=== PATIENT | female | born 1950 | race Caucasian/White ===

== ENCOUNTER → 2020-11-21 12:02 | Outpatient (CLI) | payer MEDICARE, SELFPAY ==
--- NOTE | ~2020-11-21 | MM_ITS ---
EXAMINATION: MM screening [facility] BI w naima HISTORY: Screening mammogram TECHNIQUE: Craniocaudal and mediolateral oblique 3-D tomosynthesis images were obtained and synthetic 2-D images were generated. CAD analysis was submitted and interpreted. COMPARISON: 04/09/2018, 04/02/2017, 04/16/2015 BREAST PARENCHYMAL COMPOSITION: The breasts are heterogeneously dense, which may obscure small masses . FINDINGS: Scattered benign-appearing calcifications are present. There is no evidence of suspicious m ass, calcification, or architectural distortion to suggest malignancy in either breast. There has bee n no suspicious interval change. IMPRESSION: 1. No mammographic evidence of malignancy. 2. Recommend routine screening mammography in one year. BI-RADS Category 2: Benign finding(s). Reviewed, dictated and finalized at location A. ARE PROJECT MANAGER
== END ==
PROVIDERS: PCP Internal Medicine; Visit Provider Obstetrics & Gynecology
DX: Z12.31 Encounter for screening mammogram for malignant neoplasm of breast (principal)
CPT/HCPCS: 77063; 77067

== ENCOUNTER → 2022-04-18 07:11 | Outpatient (CLI) | payer MEDICARE, SELFPAY ==
--- NOTE | ~2022-04-18 | MM_ITS ---
EXAMINATION: MM screening [facility] w naima HISTORY: Screening TECHNIQUE: Craniocaudal and mediolateral oblique 3-D tomosynthesis images were obtained and synthetic 2-D images were generated. CAD analysis was submitted and interpreted. COMPARISON: Comparison to multiple prior studies sequentially, with oldest reviewed study dated 04/16. BREAST PARENCHYMAL COMPOSITION: The breasts are heterogeneously dense, which may obscure small masses . FINDINGS: There is no evidence of suspicious mass, calcification, or architectural distortion to sugg est malignancy in either breast. There has been no suspicious interval change. IMPRESSION: 1. No mammographic evidence of malignancy. 2. Recommend routine screening mammography in one year. BI-RADS Category 1: Negative Reviewed, dictated and finalized at location A.
== END ==
PROVIDERS: PCP Internal Medicine; Visit Provider Obstetrics & Gynecology
DX: Z12.31 Encounter for screening mammogram for malignant neoplasm of breast (principal)
CPT/HCPCS: 77063; 77067

== ENCOUNTER 2022-11-05 01:53 | Day surgery (SDC) | payer MEDICARE, SELFPAY ==
[2022-10-24 14:00] VITALS: BMI 23.1
--- NOTE | 2022-11-04 12:47 | PM.HPGS ---
History of Present Illness History of Present Illness Consent: Risks, benefits, and alternatives have been discussed and questions answered. Patient agrees to proceed with procedure. Chief complaint: hx colon polyps Narrative: Akiko Henderson is a 72 year old female here for colon cancer screening. She has had polyps removed in the past. About 5 years ago she required a colon resection for diverticulitis. Prior to the surgery she had a colonoscopy, her 1st. Apparently it was unremarkable, but in the surgical specimen a polyp was found. This is her 1st colonoscopy since the surgery. Review of Systems Review of Systems: All systems reviewed & are unremarkable except as noted in HPI and below PMFSH Past Medical History Medical History Benign hypertension with chronic kidney disease Bilateral carpal tunnel syndrome Body mass index [BMI] 28.0-28.9, adult (12/17/15) Cervical spine pain Cough Decreased renal function Encounter for breast cancer screening other than mammogram Encounter for screening for lung cancer Essential (primary) hypertension Fuchs' syndrome II Gout Gout, unspecified Hernia of abdominal wall History of diverticulitis of colon Hyperlipidemia Hyperuricemia Low blood potassium Medicare annual wellness visit, subsequent Other hyperlipidemia Other specified disorders of bone density and structure, unspecified ankle and foot Preoperative clearance Right hip pain Stage 3 chronic kidney disease Tobacco use disorder Trigger finger, left middle finger Unspecified kidney failure Surgical History Surgical History History of partial colectomy 2012 with colostomy. Colostomy has been since reversed Hx of colonoscopy Family History Family History Father Family history of liver disease Sibling Cerebrovascular accident Social History Social History Smoking packs per day: 0.5 Smoking cigarettes per day: 10.0 Years smoked: 50 Smoking pack-years: 25.00 Smoking status: Current every day smoker Tobacco type: cigarettes Second hand tobacco smoke exposure: Yes Alcohol intake: current Drinks per week: 5 Substance use: never Substance use type: does not use Living arrangements: with family Gender identity (if verbalized by the patient): Female Spiritual care concerns: No Meds Home Medications and Allergies Home Medications Medication Instructions Recorded Confirmed Type triamterene 75 1 tablet PO DAILY #60 tabs 10/03/19 10/24/22 Rx mg-hydrochlorothiazide 50 mg tablet allopurinol 100 mg tablet 100 mg PO BID #180 tabs 09/04/22 10/24/22 Rx aspirin 81 mg chewable tablet 81 mg PO DAILY 09/30/22 10/24/22 History cholecalciferol (vitamin D3) 125 125 mcg PO DAILY 09/30/22 10/24/22 History mcg (5,000 unit) capsule cyanocobalamin (vitamin B-12) 2,000 mcg PO DAILY 09/30/22 10/24/22 History 2,000 mcg tablet prenat.vits,rolando,pyi-cruv-chmes 1 tablet PO DAILY 09/30/22 10/24/22 History verapamil 180 mg tablet,extended 180 mg PO Q12H #180 tabs 10/07/22 10/24/22 Rx release atorvastatin 40 mg tablet 40 mg PO DAILY 10/24/22 10/24/22 History naproxen 500 mg tablet 500 mg PO BID PRN Pain 10/24/22 10/24/22 History omega-3 fatty acids-vitamin E 1 cap PO DAILY 10/24/22 10/24/22 History 1,000 mg capsule Allergies Allergy/AdvReac Type Severity Reaction Status Date / Time metronidazole Allergy Unknown Unknown Verified 11/05/22 09:12 Exam Resp: Auscultation: clear to auscultation bilaterally Cardio: Rate: regular rate Rhythm: regular rhythm GI: GI Palp: Yes Soft to palpation and No Tenderness to palpation present (GI) Assessment and Plan Assessment and plan (1) Screening for colon cancer: Code(s): Z12.11 - Encounter for screening for malignan
[2022-11-05 09:12] VITALS: BP 157/70; PULSE 89; RESP 18; TEMP 36.2; O2SAT 99
[2022-11-05] MEDS: LACTATED RINGERS 1,000 ML 150 ML IV CONT (09:23)
--- NOTE | 2022-11-05 09:35 | WPDANESEPPF ---
Anes - Initial Pre Proc Eval Procedure: Operation Date: 11/05/22 10:30 Proposed Procedures p Screening Colonoscopy - Eliezer Rahman MD Date/Time: 11/05/22 09:35 Surgeon: Eliezer Rahman MD Pre Op Diagnosis: hx colon polyps Patient Data Age: 72 Gender: F Height: 1.63 m Weight: 62.7 kg Last Vital Signs Temp 97.2 F L 11/05/22 09:12 Pulse 89 11/05/22 09:12 Resp 18 11/05/22 09:12 BP 157/70 H 11/05/22 09:12 Pulse Ox 99 11/05/22 09:12 O2 Del Method Room Air 11/05/22 09:12 Allergies Allergy/AdvReac Type Severity Reaction Status Date / Time metronidazole Allergy Unknown Unknown Verified 11/05/22 09:12 Home Medications Medication Instructions Recorded Confirmed Type triamterene 75 1 tablet PO DAILY #60 tabs 10/03/19 10/24/22 Rx mg-hydrochlorothiazide 50 mg tablet allopurinol 100 mg tablet 100 mg PO BID #180 tabs 09/04/22 10/24/22 Rx aspirin 81 mg chewable tablet 81 mg PO DAILY 09/30/22 10/24/22 History cholecalciferol (vitamin D3) 125 125 mcg PO DAILY 09/30/22 10/24/22 History mcg (5,000 unit) capsule cyanocobalamin (vitamin B-12) 2,000 mcg PO DAILY 09/30/22 10/24/22 History 2,000 mcg tablet prenat.vits,rolando,pax-uksj-utyqz 1 tablet PO DAILY 09/30/22 10/24/22 History verapamil 180 mg tablet,extended 180 mg PO Q12H #180 tabs 10/07/22 10/24/22 Rx release atorvastatin 40 mg tablet 40 mg PO DAILY 10/24/22 10/24/22 History naproxen 500 mg tablet 500 mg PO BID PRN Pain 10/24/22 10/24/22 History omega-3 fatty acids-vitamin E 1 cap PO DAILY 10/24/22 10/24/22 History 1,000 mg capsule Patient hx anesthesia problems: none Family hx anesthesia problems: none Results Review: All pre-operative results and documents have been reviewed as part of the pre-operative evaluation. [facility] Past Medical History Medical History Benign hypertension with chronic kidney disease Bilateral carpal tunnel syndrome Body mass index [BMI] 28.0-28.9, adult (12/17/15) Cervical spine pain Cough Decreased renal function Encounter for breast cancer screening other than mammogram Encounter for screening for lung cancer Essential (primary) hypertension Fuchs' syndrome II Gout Gout, unspecified Hernia of abdominal wall History of diverticulitis of colon Hyperlipidemia Hyperuricemia Low blood potassium Medicare annual wellness visit, subsequent Other hyperlipidemia Other specified disorders of bone density and structure, unspecified ankle and foot Preoperative clearance Right hip pain Stage 3 chronic kidney disease Tobacco use disorder Trigger finger, left middle finger Unspecified kidney failure Surgical History Surgical History History of partial colectomy 2012 with colostomy. Colostomy has been since reversed Hx of colonoscopy Family History Family History Father Family history of liver disease Sibling Cerebrovascular accident Social History Social History Smoking packs per day: 0.5 Smoking cigarettes per day: 10.0 Years smoked: 50 Smoking pack-years: 25.00 Smoking status: Current every day smoker Tobacco type: cigarettes Second hand tobacco smoke exposure: Yes Alcohol intake: current Drinks per week: 5 Substance use: never Substance use type: does not use Living arrangements: with family Gender identity (if verbalized by the patient): Female Spiritual care concerns: No Anes - Eval Final PreProcedure Day of Procedure 11/05/22 09:35 Patient weight: normal Heart: regular rate and rhythm Lungs: clear to auscultation Airway: Mallampati scale class II Neurological: alert and oriented Last oral intake: >/= 8 hours ASA classification: III Emergent: no Anesthetic plan: proceed Anesthesia type and monitoring: general GIVS and standard m
[2022-11-05 09:57] VITALS: BP 130/59; PULSE 78; RESP 22; O2SAT 100
[2022-11-05 10:07] VITALS: BP 133/74; PULSE 77; RESP 20; O2SAT 100
[2022-11-05 10:17] VITALS: BP 139/73; PULSE 72; RESP 19; O2SAT 97
== END 2022-11-05 10:26 | disposition home or self-care (01) ==
PROVIDERS: PCP Physician Assistant Medical; Visit Provider Internal Medicine Gastroenterology
PROC: 0DJD8ZZ Inspection of Lower Intestinal Tract, Via Natural or Artificial Opening Endoscopic (ICD-10-PCS; CPT 45378; principal; 2022-11-05 10:30)
DX: Z12.11 Encounter for screening for malignant neoplasm of colon (principal); Z98.0 Intestinal bypass and anastomosis status; Z86.010 Personal history of colon polyps; I12.9 Hypertensive chronic kidney disease with stage 1 through stage 4 chronic kidney disease, or unspecified chronic kidney disease; N18.30 Chronic kidney disease, stage 3 unspecified; H18.519 Endothelial corneal dystrophy, unspecified eye; M10.9 Gout, unspecified; Z87.19 Personal history of other diseases of the digestive system; E78.5 Hyperlipidemia, unspecified; Z90.49 Acquired absence of other specified parts of digestive tract; F10.90 Alcohol use, unspecified, uncomplicated; F17.210 Nicotine dependence, cigarettes, uncomplicated; Z79.82 Long term (current) use of aspirin; Z79.1 Long term (current) use of non-steroidal anti-inflammatories (NSAID); Z79.899 Other long term (current) drug therapy
CPT/HCPCS: G0105; J2704; J7120

== ENCOUNTER 2023-02-09 01:33 | Day surgery (SDC) | payer MEDICARE, SELFPAY ==
[2023-01-27 09:33] VITALS: BMI 23.1
--- NOTE | 2023-01-27 09:37 | PC.NURSE ---
Report to the Outpatient Waiting Room, entrance under the green pavilion located off [facility], at time __2PM on date __02/09/23 . Planned Procedure Time: ___3PM . Time changes happen often and if your time is changed the preop area will call you the afternoon before. - You and your visitor will be asked to self-screen and do not enter if you have any COVID symptoms. - A mask is optional within the hospital at this time. -MAY EAT/DRINK NORMALLY Take the following medications with a SIP of water the morning of surgery: REGULAR HOME MEDS DO NOT STOP ANY OF YOUR OTHER PRESCRIPTION MEDICATIONS PRIOR TO SURGERY ?EXCEPT THE FOLLOWING Medications to discontinue per DR. KIRBY - _ASPIRIN, NAPROXEN 7 DAYS PRIOR TO SURGERY, Date to take last dose 02/01/23_ Please no make-up, nail uzbek, hairspray, perfume, deodorant, or body powder the day of surgery. No jewelry (including any body piercings) or valuables the day of surgery, leave them at home. Please take a shower or bath the night before, or the morning of, surgery with an antibacterial soap. Wear comfortable, loose fitting clothing. Children are encouraged to wear pajamas. - Jewelry must be removed prior to entering the operating room. Rings and piercings that are not removed may be cut off. - The hospital will not accept responsibility for valuables. - Please leave all valuables, including medications, at home the day of surgery. -MAY DRIVE YOURSELF TO/FROM HOSPITAL - VULCANIZED FIBER UNIT OPERATOR IS ENCOURAGED Follow any additional instructions given to you from your surgeon. If you or anyone in your household have experienced Covid symptoms in the past week, please notify your surgeon or the nurse liaison at the phone number below for possible testing. Telephone instructions given to ___PATIENT and asked if any additional questions and then verbalized understanding. Patient advised to call surgeon office or pre surgery nurse liaison [phone] if any additional questions.
--- NOTE | 2023-02-09 11:25 | WPDHPUPDATE1 ---
History and Physical Update Update Date/Time: 02/09/23 11:25 History and Physical has been reviewed, including an updated exam of the patient. There are NO changes in the patient's condition. Risks, benefits, and alternatives have been discussed and questions answered. Patient agrees to proceed with procedure.
[2023-02-09 13:58] VITALS: BP 139/81; PULSE 94; RESP 16; TEMP 36.3; O2SAT 97
[2023-02-09] MEDS: ACETAMINOPHEN 500 MG TABLET 1000 MG PO (14:16)
[2023-02-09 15:05] VITALS: BP 160/84; PULSE 81; RESP 15; O2SAT 96
[2023-02-09 15:10] VITALS: BP 153/72; PULSE 85; RESP 15; O2SAT 97
[2023-02-09 15:20] VITALS: BP 153/74; PULSE 89; RESP 14; O2SAT 97
[2023-02-09] MEDS: BUPIVACAINE/EPINEPHRINE 0.5% 50 ML VIAL 10 ML INFILTRATE (15:29)
[2023-02-09 15:30] VITALS: BP 148/75; PULSE 90; RESP 14; O2SAT 97
[2023-02-09 15:43] VITALS: BP 148/68; PULSE 91; RESP 18; O2SAT 96
--- NOTE | 2023-02-09 15:47 | P.OP_ITS ---
Procedure Note - Detailed Date of Procedure 02/09/23 Pre-op Diagnosis left carpal tunnel syndrome Post-op Diagnosis Same Procedure Performed Left Carpal tunnel release Surgeon Carrillo Connor MD Director Of Marketing Analytics Ladi Quiñones PA-C Anesthesia Local Description of Procedure The proposed incision was marked using typical anatomic landmarks. 10 ML .25% Marcaine injected into the wrist and proposed incision site. The hand was prepped and draped in the usual sterile fashion. The limb was exsanguinated and the tourniquet inflated to 250 millimeters of mercury. A longitudinal incision was taken sharply. Dissection was brought down to the transverse carpal ligament. Under direct vision the ligament was incised sharply. The proximal release was carried out with dissection scissors. The contents of the carpal canal were protected with a Martin elevator. The transverse carpal ligament was confirmed to be widely patent. The wound was closed with interrupted 3-0 Prolene suture. A sterile bulky dressing was placed. Patient was brought to the recovery room in stable condition. Estimated Blood Loss 1 Pathology None sent Complications No immediate complications Condition Stable Disposition PACU [facility] Billing Surgery - Charge Forward: Surgery Billing
== END 2023-02-09 16:01 | disposition home or self-care (01) ==
PROVIDERS: PCP Physician Assistant Medical; Visit Provider Orthopaedic Surgery
PROC: (CPT 64721; principal; 2023-02-09 15:00)
DX: G56.02 Carpal tunnel syndrome, left upper limb (principal); F17.210 Nicotine dependence, cigarettes, uncomplicated; Z90.49 Acquired absence of other specified parts of digestive tract; Z79.82 Long term (current) use of aspirin
CPT/HCPCS: 64721; A9270

== ENCOUNTER 2023-10-23 09:57 | Outpatient (CLI) | payer MEDICARE, SELFPAY ==
[2023-10-23 11:25] LABS: Toxigenic C. Diff NEGATIVE (NEGATIVE)
== END 2023-10-23 09:58 | disposition home or self-care (01) ==
LOC: ANHLAB 09:58
PROVIDERS: PCP Physician Assistant Medical; Visit Provider Internal Medicine Gastroenterology
DX: R19.7 Diarrhea, unspecified (principal)
CPT/HCPCS: 87045; 87427; 87449; 87493; 89055

== ENCOUNTER 2023-10-27 11:13 | Outpatient (CLI) | payer MEDICARE, SELFPAY ==
[2023-10-27 11:45] LABS: Hematocrit 38.7 % (37.0-47.0); Mean Corpuscular HGB Conc 33.6 g/dl (32-36); Mean Corpuscular Hemoglobin 32.8 pg (26-34); Mean Corpuscular Volume 97.7 fl (80-100); Mean Platelet Volume 9.3 fl (7.4-10.4); Platelet Count Result 332 k/mm3 (150-375); Red Blood Count 3.96 M/mm3 (4.2-5.4); Red Cell Distribution Width 13.6 % (11.5-14.5); White Blood Count 9.8 K/mm3 (4.5-10.0)
[2023-10-27 11:56] LABS: Alanine Aminotransferase 18 U/L (6-35); Albumin Level 4.2 g/dL (3.5-5.1); Alkaline Phosphatase 61 U/L (38-126); Anion Gap 12 mmol/L (8-16); Aspartate Amino Transferase 23 U/L (14-36); Bilirubin,Total 0.8 mg/dL (0.2-1.3); Blood Urea Nitrogen 30 mg/dL (7-17); CRP < 0.5 mg/dL (<1.0); Calcium 10.7 mg/dL (8.4-10.2); Carbon Dioxide 26 mmol/L (22-30); Chloride 102 mmol/L (98-107); Estimated Glomerular Filt Rate 21; Glucose 103 mg/dL (65-110); Potassium 3.6 mmol/L (3.4-5.0); Sodium 140 mmol/L (137-145)
[2023-10-27 12:23] LABS: Erythrocyte Sedimentation Rate 27 mm/hr (0-20)
[2023-10-30 01:51] LABS: Immunoglobulin A 210 mg/dL (70-320); TTG IGA AB <1.0 U/mL (<15.0)
== END 2023-10-27 11:14 | disposition home or self-care (01) ==
LOC: ANHLAB 11:16
PROVIDERS: PCP Physician Assistant Medical; Visit Provider Nurse Practitioner
DX: R19.7 Diarrhea, unspecified (principal); R63.4 Abnormal weight loss; I12.9 Hypertensive chronic kidney disease with stage 1 through stage 4 chronic kidney disease, or unspecified chronic kidney disease
CPT/HCPCS: 36415; 80053; 82784; 84443; 85027; 85652; 86140; 86364

== ENCOUNTER 2024-01-15 00:30 | Day surgery (SDC) | payer MEDICARE, SELFPAY ==
[2024-01-06 13:55] VITALS: BMI 23.0
--- NOTE | 2024-01-13 10:35 | SUR.PREOP ---
Patient called regarding upcoming procedure. Reviewed preop instructions, appointment times, and procedure prep.
[2024-01-15 12:05] VITALS: BP 129/75; PULSE 113; RESP 18; TEMP 36.8; O2SAT 97; BMI 21.7
--- NOTE | 2024-01-15 12:05 | WPDANESEPPF ---
Anes - Initial Pre Proc Eval Procedure: Operation Date: 01/15/24 13:30 Proposed Procedures p Flexible Sigmoidoscopy - Jose Jovel MD Date/Time: 01/15/24 12:05 Surgeon: Jose Jovel MD Pre Op Diagnosis: Diarrhea Patient Data Age: 73 Gender: F Height: 1.6 m Weight: 59 kg Allergies Allergy/AdvReac Type Severity Reaction Status Date / Time Sulfa (Sulfonamide Allergy Intermediate Hives Verified 01/15/24 12:03 Antibiotics) varenicline [From Chantix] AdvReac Mild diarrhea & Verified 01/15/24 12:03 emesis metronidazole AdvReac Nausea and Verified 01/15/24 12:03 Vomiting Home Medications Medication Instructions Recorded Confirmed Type aspirin 81 mg chewable tablet 81 mg PO DAILY 09/30/22 01/06/24 History cholecalciferol (vitamin D3) 125 125 mcg PO DAILY 09/30/22 01/06/24 History mcg (5,000 unit) capsule prenat.vits,rolando,nqu-srqn-qadoc 1 tablet PO DAILY 09/30/22 01/06/24 History naproxen 500 mg tablet 500 mg PO BID PRN Pain 10/24/22 01/06/24 History omega-3 fatty acids-vitamin E 1 cap PO DAILY 10/24/22 01/06/24 History 1,000 mg capsule cyanocobalamin (vitamin B-12) 1,000 mcg PO DAILY 03/23/23 01/06/24 History 2,000 mcg tablet [place] PROBIOTIC BYMOUTH 09/30/23 12/02/23 History cholestyramine (with sugar) 4 gram 4 g PO BID #60 ea 10/27/23 01/06/24 Rx powder for susp in a packet (Questran) allopurinol 100 mg tablet 100 mg PO BID #180 tabs 11/13/23 01/06/24 Rx atorvastatin 40 mg tablet 40 mg PO DAILY #90 tabs 12/03/23 01/06/24 Rx triamterene 75 1 tablet PO DAILY #90 tabs 12/03/23 01/06/24 Rx mg-hydrochlorothiazide 50 mg tablet verapamil 180 mg tablet,extended 180 mg PO DAILY #180 tabs 12/03/23 01/06/24 Rx release Patient hx anesthesia problems: none Family hx anesthesia problems: none Results Review: All pre-operative results and documents have been reviewed as part of the pre-operative evaluation. [facility] Past Medical History Medical History (Updated 11/26/23 @ 10:08 by Marilyn Robert APRN) Bilateral carpal tunnel syndrome Body mass index [BMI] 28.0-28.9, adult (12/17/15) Cervical spine pain Cough Edema of left ankle Encounter for breast cancer screening other than mammogram Encounter for screening for lung cancer Essential (primary) hypertension Fuchs' syndrome II Gout Hernia of abdominal wall History of diverticulitis of colon Hyperlipidemia Hyperuricemia Low blood potassium Nocturnal diarrhea Other specified disorders of bone density and structure, unspecified ankle and foot Preoperative clearance Right hip pain Stage 3b chronic kidney disease Tobacco use disorder Trigger finger, left middle finger Vitamin D deficiency Weight loss Surgical History Surgical History History of carpal tunnel surgery of left wrist (~02/09/23) History of partial colectomy 2012 with colostomy. Colostomy has been since reversed Hx of colonoscopy Family History Family History Father Family history of liver disease Sibling Cerebrovascular accident Social History Social History Smoking packs per day: 0.5 Smoking cigarettes per day: 10.0 Years smoked: 50 Smoking pack-years: 25.00 Smoking status: Current every day smoker Tobacco type: cigarettes Second hand tobacco smoke exposure: Yes Alcohol intake: current Drinks per week: 5 Alcohol use details: rarely Substance use: never Substance use type: does not use Do You Feel Safe in your Home?: Yes Lack of Transportation: No Lack of Food: Never True Current Housing: I Have Housing Concerned About Future Housing: No Difficulty Paying Gas/Electric Bills: No Difficulty Paying for Meds: No Currently Unemployed: No Education: High School Diploma/GED Difficulty w/ Childcare or Fa
[2024-01-15] MEDS: LACTATED RINGERS 1,000 ML 150 ML IV CONT (12:22)
--- NOTE | 2024-01-15 12:25 | SUR.PREOP ---
SPOKE WITH DR BLANK REGARDING PATIENT'S HR. PATIENT STATED SHE FEELS DEHYDRATED. PULSE PALPATED AND REGULAR RHYTHM NOTES, INFORMED DR BLANK THAT PT HAD NOT TAKEN HER MEDICATION SINCE THURSDAY. DR. BLANK WENT IN TO EXAM PATIENT AND NO ORDERS RECEIVE.
--- NOTE | 2024-01-15 12:28 | PM.HPGS ---
History of Present Illness History of Present Illness Consent: Risks, benefits, and alternatives have been discussed and questions answered. Patient agrees to proceed with procedure. Chief complaint: Diarrhea Narrative: Akiko Henderson is a 73 year old female her for sigmoidoscopy because of diarrhea, she took questran for 2 weeks but did not make a difference. Hx of recurrent sigmoid diverticulitis with recurrent pelvic abscesses status post sigmoid colon resection and descending colostomy in 2013, which was eventually reversed.? TSH, celiac panel, C diff and stool culture were all unremarkable. Review of Systems Review of Systems: All systems reviewed & are unremarkable except as noted in HPI and below PMFSH Past Medical History Medical History (Updated 11/26/23 @ 10:08 by Marilyn Robert, HERMILO) Bilateral carpal tunnel syndrome Body mass index [BMI] 28.0-28.9, adult (12/17/15) Cervical spine pain Cough Edema of left ankle Encounter for breast cancer screening other than mammogram Encounter for screening for lung cancer Essential (primary) hypertension Fuchs' syndrome II Gout Hernia of abdominal wall History of diverticulitis of colon Hyperlipidemia Hyperuricemia Low blood potassium Nocturnal diarrhea Other specified disorders of bone density and structure, unspecified ankle and foot Preoperative clearance Right hip pain Stage 3b chronic kidney disease Tobacco use disorder Trigger finger, left middle finger Vitamin D deficiency Weight loss Surgical History Surgical History History of carpal tunnel surgery of left wrist (~02/09/23) History of partial colectomy 2013 with colostomy. Colostomy has been since reversed Hx of colonoscopy Family History Family History Father Family history of liver disease Sibling Cerebrovascular accident Social History Social History Smoking packs per day: 0.5 Smoking cigarettes per day: 10.0 Years smoked: 50 Smoking pack-years: 25.00 Smoking status: Current every day smoker Tobacco type: cigarettes Second hand tobacco smoke exposure: Yes Alcohol intake: current Drinks per week: 5 Alcohol use details: rarely Substance use: never Substance use type: does not use Do You Feel Safe in your Home?: Yes Lack of Transportation: No Lack of Food: Never True Current Housing: I Have Housing Concerned About Future Housing: No Difficulty Paying Gas/Electric Bills: No Difficulty Paying for Meds: No Currently Unemployed: No Education: High School Diploma/GED Difficulty w/ Childcare or Family Care: No Living arrangements: with family Occupation/Education: retired Gender identity (if verbalized by the patient): Female Spiritual care concerns: No Meds Home Medications and Allergies Home Medications Medication Instructions Recorded Confirmed Type aspirin 81 mg chewable tablet 81 mg PO DAILY 09/30/22 01/06/24 History cholecalciferol (vitamin D3) 125 125 mcg PO DAILY 09/30/22 01/06/24 History mcg (5,000 unit) capsule prenat.vits,rolando,ogh-slaa-ubbtc 1 tablet PO DAILY 09/30/22 01/06/24 History naproxen 500 mg tablet 500 mg PO BID PRN Pain 10/24/22 01/06/24 History omega-3 fatty acids-vitamin E 1 cap PO DAILY 10/24/22 01/06/24 History 1,000 mg capsule cyanocobalamin (vitamin B-12) 1,000 mcg PO DAILY 03/23/23 01/06/24 History 2,000 mcg tablet [place] PROBIOTIC BYMOUTH 09/30/23 12/02/23 History cholestyramine (with sugar) 4 gram 4 g PO BID #60 ea 10/27/23 01/06/24 Rx powder for susp in a packet (Questran) allopurinol 100 mg tablet 100 mg PO BID #180 tabs 11/13/23 01/06/24 Rx atorvastatin 40 mg tablet 40 mg PO DAILY #90 tabs 12/03/23 01/06/24 Rx triamterene 75 1 tablet PO DAILY #90 tabs 12/03/23 01/06/24 Rx mg-hydrochlorothiazide 50 mg tablet
[2024-01-15 12:46] VITALS: BP 87/49; PULSE 90; RESP 20; O2SAT 97
[2024-01-15 12:56] VITALS: BP 97/62; PULSE 91; RESP 21; O2SAT 97
[2024-01-15 13:06] VITALS: BP 125/75; PULSE 90; RESP 21; O2SAT 100
== END 2024-01-15 13:14 | disposition home or self-care (01) ==
PROVIDERS: PCP Physician Assistant Medical; Visit Provider Internal Medicine Gastroenterology
PROC: 0DJD8ZZ Inspection of Lower Intestinal Tract, Via Natural or Artificial Opening Endoscopic (ICD-10-PCS; CPT 45330; principal; 2024-01-15 13:30)
DX: R19.7 Diarrhea, unspecified (principal); K64.8 Other hemorrhoids; Z98.0 Intestinal bypass and anastomosis status; Z87.19 Personal history of other diseases of the digestive system; Z90.49 Acquired absence of other specified parts of digestive tract; I12.9 Hypertensive chronic kidney disease with stage 1 through stage 4 chronic kidney disease, or unspecified chronic kidney disease; N18.32 Chronic kidney disease, stage 3b; E78.5 Hyperlipidemia, unspecified; E55.9 Vitamin D deficiency, unspecified; M10.9 Gout, unspecified; F17.210 Nicotine dependence, cigarettes, uncomplicated; Z79.82 Long term (current) use of aspirin
CPT/HCPCS: 45331; 88305; J2001; J2704; J7120

== ENCOUNTER 2024-03-22 07:28 | Outpatient (CLI) | payer MEDICARE, SELFPAY ==
--- NOTE | ~2024-03-22 | CT_ITS ---
EXAMINATION: CT chest abdomen pelvis w con DATE: 03/22/2024 08:02 INDICATION: Abnormal weight loss. Epigastric discomfort. TECHNIQUE: Computed tomography (CT) of the chest, abdomen, and pelvis was performed with 100 mL Omnip aque 350 intravenous contrast. Automated exposure control and iterative reconstruction technique were employed. The dose-length product was 323.11 mGy-cm. COMPARISON: Chest CT 10/22/2018, CT abdomen and pelvis 03/01/2013 FINDINGS: CHEST CT: There is mild scarring at the lung apices. There is mild emphysema. There is mild atelectasis bilater ally. No pleural effusion. There is a 2.0 cm nodule in left thyroid lobe, new from 10/22/2018. The hear t size is normal. There are coronary artery calcifications. No pericardial effusion. There is mucous plugging in the lower lobes. There is severe facet spondylosis. ABDOMEN/PELVIS CT: The liver, gallbladder, spleen, pancreas, and adrenal glands are normal. There is cortical thinning i n the kidneys. There are cysts in the kidneys measuring up to 2.6 cm on the left. There is calcified atherosclerosis of the aorta and many of the other arteries. There is a 3.5 cm fibroid in the uterus. There are no dilated loops of bowel. The appendix is not visualized. There are no pathologically enl arged lymph nodes. There is no free intraperitoneal fluid. There is severe lumbar spondylosis. IMPRESSION: 1. Mild emphysema. 2. 2.0 cm left thyroid nodule. Consider thyroid ultrasound for risk stratification. Reviewed, dictated and finalized at location A. IMPRESSION: 1. Mild emphysema. 2. 2.0 cm left thyroid nodule. Consider thyroid ultrasound for risk stratificat ion.
== END 2024-03-22 07:29 | disposition home or self-care (01) ==
PROVIDERS: PCP Physician Assistant Medical; Visit Provider Nurse Practitioner
DX: E04.1 Nontoxic single thyroid nodule (principal); J43.9 Emphysema, unspecified; F17.200 Nicotine dependence, unspecified, uncomplicated
CPT/HCPCS: 71260; 74177; Q9967

== ENCOUNTER 2024-04-18 12:26 | Outpatient (CLI) | payer MEDICARE, SELFPAY ==
--- NOTE | ~2024-04-18 | US_ITS ---
EXAMINATION: US thyroid DATE: 04/18/2024 12:52 INDICATION: Thyroid nodule. TECHNIQUE: Multiple ultrasound images of the thyroid were obtained. COMPARISON: None. FINDINGS: The right thyroid lobe measures 4.0 x 0.7 x 1.2 cm. The left thyroid lobe measures 4.6 x 2.8 x 2.2 c m. In the right thyroid lobe, there is a 7 mm solid, hypoechoic, wider than tall nodule with smooth margin without echogenic foci (TI-RADS TR4). In the left thyroid lobe, there is a 3.0 cm almost compl etely cystic nodule (TR1). In the left thyroid lobe, there is 11 mm solid, hypoechoic, wider than oscar l nodule with smooth margin without echogenic foci (TR4). IMPRESSION: 1. Thyroid nodules. Thyroid ultrasound is recommended in one year. Reviewed, dictated and finalized at location A.
== END 2024-04-18 12:27 ==
PROVIDERS: PCP Physician Assistant Medical; Visit Provider Physician Assistant Medical
DX: E04.2 Nontoxic multinodular goiter (principal)
CPT/HCPCS: 76536

== ENCOUNTER 2024-08-11 13:09 | Outpatient (CLI) | payer MEDICARE, SELFPAY ==
--- NOTE | ~2024-08-11 | MM_ITS ---
EXAMINATION: MM screening [facility] BI w naima HISTORY: Screening TECHNIQUE: Craniocaudal and mediolateral oblique 3-D tomosynthesis images were obtained and synthetic 2-D images were generated. CAD analysis was submitted and interpreted. COMPARISON: Comparison to multiple prior studies sequentially, with oldest reviewed study dated 04/16. BREAST PARENCHYMAL COMPOSITION: Dense: The breasts are extremely dense, which lowers the sensitivity of mammography. FINDINGS: There are bilateral relatively symmetric coarse calcifications which are not significantly changed. There is no evidence of suspicious mass, calcification, or architectural distortion to sugge st malignancy in either breast. There has been no suspicious interval change. IMPRESSION: 1. No mammographic evidence of malignancy. 2. Recommend routine screening mammography in one year. BI-RADS Category 2: Benign finding(s). Reviewed, dictated and finalized at location B.
== END 2024-08-11 13:10 | disposition home or self-care (01) ==
PROVIDERS: PCP Physician Assistant Medical; Visit Provider Obstetrics & Gynecology
DX: Z12.31 Encounter for screening mammogram for malignant neoplasm of breast (principal)
CPT/HCPCS: 77063; 77067

== ENCOUNTER 2024-09-26 14:17 | Emergency (ER) | payer MEDICARE, SELFPAY ==
--- NOTE | ~2024-09-26 | CT_ITS ---
EXAMINATION: CT abdomen pelvis wo con DATE: 09/26/2024 18:20 INDICATION: diarrhea q4htmdy TECHNIQUE: Computed tomography (CT) of the abdomen and pelvis was performed without intravenous contr ast. Automated exposure control and iterative reconstruction technique were employed. The dose-length product was 181.80 mGy-cm. COMPARISON: CT cap 03/22/2024. FINDINGS: Lower thorax: Aortic and coronary artery calcifications. Liver: Normal. Biliary/Gallbladder: Gallbladder is absent. No bile duct dilation. Pancreas: Moderate atrophy. Spleen: Normal. Adrenals:No mass. Kidneys: No suspicious mass, obstructing stone, or hydronephrosis. Simple left lower pole and mid thien e cysts. Bilateral subcentimeter hypodensities, too small to characterize. 2 mm right lower pole nono bstructing calcification. GI tract: Uncomplicated appearing distal sigmoid anastomosis. No small or large bowel dilation. The a ppendix is not confidently visualized. Mesentery/Peritoneum: No ascites, mass, or free air. Retroperitoneum: No mass. Pelvis: Normal urinary bladder. Calcified uterine fibroids. Soft Tissues: Soft tissues and body wall unremarkable. Bones: No acute osseous finding. IMPRESSION: No acute abdominal pelvic process detected. Reviewed, dictated and finalized at location K. NSED CLINICIAN
[2024-09-26 14:18] VITALS: BP 131/69; PULSE 103; RESP 18; TEMP 36.2; O2SAT 97
[2024-09-26 16:36] VITALS: BP 134/84; PULSE 91; RESP 18; TEMP 36.8; O2SAT 97
[2024-09-26 17:45] LABS: Basophils Absolute Auto 0.1 K/mm3 (0.0-0.1); Basophils Percent Auto 0.5 % (0.2-1.2); Eosinophils Absolute Auto 0.2 K/mm3 (0-0.3); Eosinophils Percent Auto 1.5 % (0-4.4); Hematocrit 34.6 % (37.0-47.0); Hemoglobin 11.4 g/dL (12.0-15.0); Immature Granulocyte Absolute 0.08 K/mm3 (0.00-0.031); Immature Granulocyte Percent A 0.5 % (0-0.5); Lymphocytes Absolute Auto 2.82 K/mm3 (0.9-3.2); Lymphocytes Percent Auto 18.5 % (18.3-44.2); Mean Corpuscular HGB Conc 32.9 g/dl (32-36); Mean Corpuscular Hemoglobin 31.7 pg (26-34); Mean Corpuscular Volume 96.1 fl (80-100); Mean Platelet Volume 9.8 fl (7.4-10.4); Monocytes Absolute Auto 0.9 K/mm3 (0.1-0.6); Neutrophils Absolute Auto 11.1 K/mm3 (1.3-6.7); Platelet Count Result 432 k/mm3 (150-375); Red Cell Distribution Width 14.1 % (11.5-14.5); White Blood Count 15.2 K/mm3 (4.5-10.0)
[2024-09-26 18:01] LABS: Lactic Acid Reflex 0.8 mmol/L (0.7-2.0)
[2024-09-26 18:04] LABS: Alanine Aminotransferase 9 U/L (6-35); Albumin Level 4.1 g/dL (3.5-5.1); Alkaline Phosphatase 71 U/L (38-126); Anion Gap 7 mmol/L (4-12); Aspartate Amino Transferase 26 U/L (14-36); Bilirubin,Total 0.4 mg/dL (0.2-1.3); Blood Urea Nitrogen 36 mg/dL (7-17); Calcium 10.1 mg/dL (8.4-10.2); Carbon Dioxide 31 mmol/L (22-30); Chloride 101 mmol/L (98-107); Estimated CRCL calculation 17 ml/min; Estimated Glomerular Filt Rate 24; Glucose 86 mg/dL (65-110); Lipase 42 U/L (23-300); Magnesium 1.6 mg/dL (1.6-2.3); Sodium 139 mmol/L (137-145)
[2024-09-26 18:08] VITALS: BP 141/71; PULSE 82; RESP 18; O2SAT 98
--- NOTE | 2024-09-26 18:18 | ED.NAVMDI ---
HPI - Nausea/Vomiting/Diarrhea General Chief complaint: Nausea/Vomiting/Diarrhea Stated complaint: diarrhea Time Seen by Provider: 09/26/24 17:02 Source: patient Mode of arrival: ambulatory Limitations: no limitations History of Present Illness HPI Narrative: Patient is a 74-year-old female who presents the ED with report of diarrhea. Patient reports she has been having issues with diarrhea for the past 1 year. She has been seeing Dr. Vegas with GI for this. States she has undergone extensive testing without a diagnosis as to why she has been having diarrhea. She reports over the last 2 weeks, patient has been having worsening diarrhea. Reporting multiple episodes of diarrhea per day. States it is very foul smelling. Denies rectal bleeding or melena. States she is now feeling very weak and fatigued, dehydrated. Reports decreased appetite, intermittent nausea/vomiting/abd cramping. Denies fevers. Denies recent antibiotic use or travel. States she has history of CKD, typically her creatinine runs around 1.3. Sees Dr. Harris. She states she had her blood work checked last week and her creatinine was up to 2.7. Related Data Home Medications Medication Instructions Recorded Confirmed aspirin 81 mg chewable tablet 81 mg PO DAILY 09/30/22 08/05/24 cholecalciferol (vitamin D3) 125 125 mcg PO DAILY 09/30/22 08/05/24 mcg (5,000 unit) capsule prenat.vits,rolando,lti-dkti-hbkvh 1 tablet PO DAILY 09/30/22 08/05/24 naproxen 500 mg tablet 500 mg PO BID PRN Pain 10/24/22 08/05/24 omega-3 fatty acids-vitamin E 1 cap PO DAILY 10/24/22 08/05/24 1,000 mg capsule cyanocobalamin (vitamin B-12) 1,000 mcg PO DAILY 03/23/23 08/05/24 2,000 mcg tablet prednisolone acetate 0.125 % eye drp ophthalmic (eye) 07/19/24 08/05/24 drops,suspension Allergies Allergy/AdvReac Type Severity Reaction Status Date / Time Sulfa (Sulfonamide Allergy Intermediate Hives Verified 09/26/24 17:18 Antibiotics) varenicline [From Chantix] AdvReac Mild diarrhea & Verified 09/26/24 17:18 emesis metronidazole AdvReac Nausea and Verified 09/26/24 17:18 Vomiting Review of Systems Review of Systems: All systems reviewed & are unremarkable except as noted in HPI. All systems reviewed & are unremarkable except as noted in HPI and below PMFSH Past Medical History Medical History Bilateral carpal tunnel syndrome Body mass index [BMI] 28.0-28.9, adult (12/17/15) Cervical spine pain Cough Edema of left ankle Encounter for breast cancer screening other than mammogram Encounter for screening for lung cancer Essential (primary) hypertension Fuchs' syndrome II Gout Hernia of abdominal wall History of diverticulitis of colon Hyperlipidemia Hyperuricemia Low blood potassium Multiple thyroid nodules (~03/2024) Nocturnal diarrhea Other specified disorders of bone density and structure, unspecified ankle and foot Preoperative clearance Right hip pain Stage 3b chronic kidney disease Tobacco use disorder Trigger finger, left middle finger Vitamin D deficiency Weight loss Surgical History Surgical History History of carpal tunnel surgery of left wrist (~02/09/23) History of partial colectomy 2012 with colostomy. Colostomy has been since reversed Hx of colonoscopy Family History Family History Father Family history of liver disease Sibling Cerebrovascular accident Social History Social History Smoking packs per day: 0.5 Smoking cigarettes per day: 10.0 Years smoked: 50 Smoking pack-years: 25.00 Smoking status: Current every day smoker Tobacco type: cigarettes Second hand tobacco smoke exposure: Yes Alcohol intake: current Drinks per week: 5 Alcohol use details: rarely Substance use: never Substance use type: does not use Do You Feel Safe in your Home?: Yes Lack of Transportation: No Lack of Food: Never True Current Housing: I Have Housing Concerned About Future Housing: No Difficulty Paying Gas/Electric Bills: No Difficulty Paying for Meds: No Currently Unemployed: No Education: High School Diploma/GED Difficulty w/ Childcare or Family Care: No Living arrangements: with family Occupation/Education: retired Gender identity (if verbalized by the patient): Female Spiritual care concerns: No Exam Narrative: GENERAL: Elderly, somewhat frail/thin, non-toxic, in no acute distress. HEAD: Normocephalic, atraumatic. RESPIRATORY: Airway patent, respirations nonlabored. Clear to auscultation bilaterally, no rales, rhonchi, wheezing. CARDIOVASCULAR: Regular rate and rhythm without murmurs, rubs, or gallops. ABDOMINAL: Soft, no significant tenderness throughout abdomen, nondistended. Normoactive BS. MUSCULOSKELETAL: Moves all extremities. No gross deformities. SKIN: Warm, dry, normal color. NEURO: A&O X3. Speech clear. No focal deficits. PSYCHIATRIC: Appropriate mood and affect. Normal interaction. Course Vital Signs Vital signs: Vital Signs Temperature 97.1 F L 09/26/24 14:18 Pulse Rate 103 H 09/26/24 14:18 Respiratory Rate 18 09/26/24 14:18 Blood Pressure 131/69 09/26/24 14:18 Pulse Oximetry 97 09/26/24 14:18 Oxygen Delivery Room Air 09/26/24 14:18 Temperature 98.3 F 09/26/24 16:36 Pulse Rate 71 09/26/24 21:43 Respiratory Rate 16 09/26/24 21:43 Blood Pressure 145/85 H 09/26/24 21:43 Pulse Oximetry 97 09/26/24 21:43 Oxygen Delivery Room Air 09/26/24 14:18 MDM - Nausea/Vomiting/Diarrhea MDM Narrative Medical decision making narrative: Patient presented to ED with 2 week history of persistent diarrhea. History of diarrhea for the last 1 year, but states it has been frequent over the last 2 weeks. Now feeling weak, fatigued, dehydrated. Vital signs are stable upon arrival. Patient was initially mildly tachycardic upon arrival. She is afebrile. Fluids initiated. CBC with white blood cell count of 15.2. CMP with potassium of 3.0. Oral and IV replacement given. Normal bicarb. No anion gap. Creatinine up to 2.0. Per records, baseline around 1.5. Fluids ongoing. Magnesium borderline at 1.6. IV replacement ordered for this as well. Lactic acid within normal range at 0.8. Urinalysis clear. CT scan of abdomen/pelvis was obtained and was unremarkable. No evidence of surgical abnormalities, diverticulitis, infection. Attempted to obtain stool sample in the ED, however patient unable to provide stable. I have a lesser suspicion for C diff at this time as patient denies recent antibiotic use. Reports diarrhea has been ongoing for the last 1 year. No recent travel. Patient was updated on lab and imaging findings. Given 2 L of fluid in the ED. She is feeling improved. Discussed discharge home versus admission for continued hydration given slight EVELIA. Utilize shared decision-making with patient. She would prefer to go home. She has an appointment with her retail merchandising specialist this week. She also has appointment with GI specialist this week. I do feel comfortable with this plan. I advised patient to continue to increase fluid intake at home, can continue Imodium as needed for diarrhea. Discussed strict return precautions. She voiced understanding. Discharged in stable condition. Medical Records Attestation: I reviewed the patient's medical records. Lab Data Attestation: I reviewed the patient's lab results. 09/26/24 17:27 09/26/24 17:27 Labs: Lab Results 09/26/24 09/26/24 09/26/24 Range/Units 17:27 17:27 17:35 WBC 15.2 H (4.5-10.0) K/mm3 RBC 3.60 L (4.2-5.4) M/mm3 Hgb 11.4 L (12.0-15.0) g/dL Hct 34.6 L (37.0-47.0) % MCV 96.1 (80-100) fl MCH 31.7 (26-34) pg MCHC 32.9 (32-36) g/dl RDW 14.1 (11.5-14.5) % Plt Count 432 H (150-375) k/mm3 MPV 9.8 (7.4-10.4) fl Immature Gran % (Auto) 0.5 (0-0.5) % Neut % (Auto) 73.0 (45.5-73.1) % Lymph % (Auto) 18.5 (18.3-44.2) % [place] % (Auto) 6.0 (2.6-8.5) % Eos % (Auto) 1.5 (0-4.4) % Baso % (Auto) 0.5 (0.2-1.2) % Lymph # (Auto) 2.82 (0.9-3.2) K/mm3 [place] # (Auto) 0.9 H (0.1-0.6) K/mm3 Eos # (Auto) 0.2 (0-0.3) K/mm3 Baso # (Auto) 0.1 (0.0-0.1) K/mm3 Abs Immat Gran (auto) 0.08 H (0.00-0.031) K/mm3 Absolute Neuts (auto) 11.1 H (1.3-6.7) K/mm3 Absolute Nucleated RBC 0.000 (0.0-0.012) K/mm3 Nucleated RBC % 0.0 (0.0-0.2) % Sodium 139 (137-145) mmol/L Potassium 3.0 L (3.4-5.0) mmol/L Chloride 101 (98-107) mmol/L Carbon Dioxide 31 H (22-30) mmol/L Anion Gap 7 (4-12) mmol/L BUN 36 H (7-17) mg/dL Creatinine 2.00 H (0.7-1.0) mg/dL Estim Creat Clear Calc 17 ml/min Estimated GFR 24 L (59 - ) Glucose 86 (65-110) mg/dL Lactic Acid 0.8 (0.7-2.0) mmol/L Calcium 10.1 (8.4-10.2) mg/dL Magnesium Cancelled 1.6 Total Bilirubin 0.4 (0.2-1.3) mg/dL AST 26 (14-36) U/L ALT 9 (6-35) U/L Alkaline Phosphatase 71 (38-126) U/L Total Creatine Kinase 66 (30-135) U/L Total Protein 7.0 (6.3-8.2) g/dL Albumin 4.1 (3.5-5.1) g/dL Lipase 42 (23-300) U/L Urine Color (Yellow) Urine Appearance (Clear) Urine pH (5.0-9.0) Ur Specific [place] (1.001-1.035) Urine Protein (Negative) mg/dL Urine Glucose (UA) (Negative) mg/dL Urine Ketones (Negative) mg/dL Ur Blood (Man) (Negative) Urine Nitrate (Negative) Urine Bilirubin (Negative) Urine Urobilinogen (<2.0) mg/dL Leukocyte Esterase Rfl (Negative) JACKELYN/UL 09/26/24 Range/Units 19:40 WBC (4.5-10.0) K/mm3 RBC (4.2-5.4) M/mm3 Hgb (12.0-15.0) g/dL Hct (37.0-47.0) % MCV (80-100) fl MCH (26-34) pg MCHC (32-36) g/dl RDW (11.5-14.5) % Plt Count (150-375) k/mm3 MPV (7.4-10.4) fl Immature Gran % (Auto) (0-0.5) % Neut % (Auto) (45.5-73.1) % Lymph % (Auto) (18.3-44.2) % [place] % (Auto) (2.6-8.5) % Eos % (Auto) (0-4.4) % Baso % (Auto) (0.2-1.2) % Lymph # (Auto) (0.9-3.2) K/mm3 [place] # (Auto) (0.1-0.6) K/mm3 Eos # (Auto) (0-0.3) K/mm3 Baso # (Auto) (0.0-0.1) K/mm3 Abs Immat Gran (auto) (0.00-0.031) K/mm3 Absolute Neuts (auto) (1.3-6.7) K/mm3 Absolute Nucleated RBC (0.0-0.012) K/mm3 Nucleated RBC % (0.0-0.2) % Sodium (137-145) mmol/L Potassium (3.4-5.0) mmol/L Chloride (98-107) mmol/L Carbon Dioxide (22-30) mmol/L Anion Gap (4-12) mmol/L BUN (7-17) mg/dL Creatinine (0.7-1.0) mg/dL Estim Creat Clear Calc ml/min Estimated GFR (59 - ) Glucose (65-110) mg/dL Lactic Acid (0.7-2.0) mmol/L Calcium (8.4-10.2) mg/dL Magnesium Total Bilirubin (0.2-1.3) mg/dL AST (14-36) U/L ALT (6-35) U/L Alkaline Phosphatase (38-126) U/L Total Creatine Kinase (30-135) U/L Total Protein (6.3-8.2) g/dL Albumin (3.5-5.1) g/dL Lipase (23-300) U/L Urine Color Yellow (Yellow) Urine Appearance Clear (Clear) Urine pH 5.5 (5.0-9.0) Ur Specific [place] 1.017 (1.001-1.035) Urine Protein Negative (Negative) mg/dL Urine Glucose (UA) Negative (Negative) mg/dL Urine Ketones Negative (Negative) mg/dL Ur Blood (Man) Negative (Negative) Urine Nitrate Negative (Negative) Urine Bilirubin Negative (Negative) Urine Urobilinogen 0.2 (<2.0) mg/dL Leukocyte Esterase Rfl Negative (Negative) JACKELYN/UL Imaging Data Attestation: I personally reviewed and interpreted this imaging study as follows: Radiologist's impression: ITS Impressions Abdomen/Pelvis CT 09/26/24 18:23 IMPRESSION: No acute abdominal pelvic process detected. Discharge Plan Discharge Clinical Impression: Diarrhea, Dehydration, EVELIA (acute kidney injury) Patient Disposition: Home, Self-Care Condition: Stable Instructions: Antibiotic Form, Dehydration (ED), Clear Liquid Diet (ED), Acute Diarrhea (ED) Additional Instructions: You may continue to use Imodium as needed for diarrhea. Increase fluid intake. Recommend electrolyte rich fluids, gatorade, pedialyte, body armour. Recommend clear liquids or bland diet until symptoms improve, such as bananas, rice, applesauce, toast, or crackers. Recommend fiber supplements to increase bulk of stool. Follow up with your primary care doctor, kidney specialist, and GI for further evaluation. Your kidney function today with slightly decreased from your normal. You were given fluids in the ED for this. We did discuss admission for this, but you preferred to go home. Recommend repeating laboratory studies within the next 1 week. Return to the ED if you experience worsening or severe symptoms, unable to keep down food or drink, severe pain, fevers, rectal bleeding, vomiting blood, passing out, feeling dizzy or lightheaded, or any other symptoms of concern. Prescriptions: No Action atorvastatin 40 mg tablet 40 mg PO DAILY Qty: 90 1RF triamterene-hydrochlorothiazid 75-50 mg tablet 1 tablet PO DAILY Qty: 90 1RF prednisolone acetate 0.125 % drops,suspension ophthalmic (eye) naproxen 500 mg Tablet 500 mg PO BID PRN (Reason: Pain) omega-3 fatty acids-vitamin E 1,000 mg Capsule 1 cap PO DAILY cholecalciferol (vitamin D3) 125 mcg (5,000 unit) capsule 125 mcg PO DAILY aspirin 81 mg tablet,chewable 81 mg PO DAILY prenat.vits,rolando,mmf-rsen-girbp Tablet 1 tablet PO DAILY cyanocobalamin (vitamin B-12) 2,000 mcg tablet 1,000 mcg PO DAILY allopurinol 100 mg tablet 100 mg PO BID Qty: 180 1RF verapamil 180 mg tablet extended release 180 mg PO Q12H Qty: 180 1RF Follow-up/Referrals: Nevin Saeed PA-C [Primary Care Provider] - Jose Jovel MD [Physician] - (GI) Time of Disposition: 21:32
[2024-09-26 18:38] LABS: Creatine Kinase 66 U/L (30-135)
[2024-09-26] MEDS: SODIUM CHLORIDE 0.9% IV 1,000 ML 999 ML IV CONT ×2 (19:04→19:06)
[2024-09-26] MEDS: MAGNESIUM SULF 2 GM/WATER 50ML 2 GM/50 ML BAG IVPB (19:05)
[2024-09-26] MEDS: POTASSIUM CHLORIDE 20 MEQ ER TABLET 40 MEQ PO (19:05)
[2024-09-26] MEDS: KCL 20 MEQ/SW 100 ML 100 ML 50 MEQ IVPB (19:05)
[2024-09-26 19:12] VITALS: BP 143/77; PULSE 81; RESP 15; O2SAT 98
[2024-09-26 19:53] LABS: Add Urine Microscopic? NO; Appearance Urine Clear (Clear); Bilirubin Urine Negative (Negative); Blood Urine Negative (Negative); Color Urine Yellow (Yellow); Glucose Urine UA Negative (Negative); Ketones Urine Negative (Negative); Leukocyte Esterase Ur Negative LEU/UL (Negative); Nitrate Urine Negative (Negative); Protein Urine Negative (Negative); Specific Grav Ur 1.017 (1.001-1.035); Urobilinogen Urine 0.2 mg/dL (<2.0); pH Urine 5.5 (5.0-9.0)
[2024-09-26 20:13] VITALS: BP 143/75; PULSE 75; RESP 17; O2SAT 97
[2024-09-26 21:43] VITALS: BP 145/85; PULSE 71; RESP 16; O2SAT 97
== END 2024-09-26 21:46 | disposition home or self-care (01) ==
PROVIDERS: Emergency Provider Physician Assistant; PCP Physician Assistant Medical
DX: R19.7 Diarrhea, unspecified (principal); N17.9 Acute kidney failure, unspecified; E86.0 Dehydration; I12.9 Hypertensive chronic kidney disease with stage 1 through stage 4 chronic kidney disease, or unspecified chronic kidney disease; N18.32 Chronic kidney disease, stage 3b; E78.5 Hyperlipidemia, unspecified; E55.9 Vitamin D deficiency, unspecified; Z90.49 Acquired absence of other specified parts of digestive tract; F17.210 Nicotine dependence, cigarettes, uncomplicated
CPT/HCPCS: 36415; 74176; 80053; 81003; 82550; 83605; 83690; 83735; 85025; 96365; 96366; 96368; 99284; A9270; J3475; J3480; J7030

== ENCOUNTER 2024-12-16 13:20 | Outpatient (CLI) | payer MEDICARE, SELFPAY | END 2024-12-16 13:21 | disposition home or self-care (01) | LOC: ANHIMG 13:24 | PROVIDERS: PCP Physician Assistant Medical; Visit Provider Physician Assistant Medical | DX: M85.89 Other specified disorders of bone density and structure, multiple sites (principal); Z78.0 Asymptomatic menopausal state; Z13.820 Encounter for screening for osteoporosis | CPT/HCPCS: 77080 ==

== ENCOUNTER 2025-03-30 14:45 | Outpatient (CLI) | payer MEDICARE, SELFPAY ==
--- NOTE | ~2025-03-30 | US_ITS ---
EXAMINATION: US thyroid DATE: 03/30/2025 15:22 INDICATION: Nontoxic thyroid nodule TECHNIQUE: Multiple ultrasound images of the thyroid were obtained. COMPARISON: 04/18/2024 FINDINGS: The right thyroid lobe measures 4.8 x 1.9 x 1.6 cm. Within the right lobe of the thyroid gland is a 7 x 4 x 5 mm nodule: Composition -solid or almost completely solid (2) Echogenicity -hyperechoic or isoechoic (1) Shape - wider than tall Margin - smooth Echogenic foci - none. =TR3 Mildly suspicious Greater than or equal to 1.5 cm: Follow-up Greater than or equal to 2.5 cm: FNA The left thyroid lobe measures 5.3 x 2.2 x 2.2 cm. Within the left lobe of the thyroid gland is a 27 x 20 x 21 mm nodule: Composition -cystic or almost completely cystic Echogenicity -anechoic Shape - wider than tall Margin - smooth Echogenic foci - none. = TR1, benign The isthmus measures 0.5cm in anterior to posterior dimension. There is otherwise normal echotexture and echogenicity throughout the remainder of the thyroid gland. No additional discrete nodules identified. Normal vascular flow is present. IMPRESSION: TR 3 nodule within the right lobe of the thyroid gland which does not meet size criteria for follow-u p or FNA. TR 1 nodule within the left lobe of the thyroid gland, with benign morphology. While follow-up is not recommended, it may be performed. Reviewed, dictated and finalized at location A. IMPRESSION: TR 3 nodule within the right lobe of the thyroid gland which does not meet size criteria for follow-up or FNA. TR 1 nodule within the left lobe of the thyroid gland, with benign morphology. While follow-up is not recommended, it may be performed.
--- OUTSIDE RECORDS SUMMARY | 2025-03-30 15:25 | XMS_ITS | Clinical Summary ---
Author Organization [facility] Address [address] [place] [id number] Phone Care Team Providers Care Center Consultant Name Role Phone Kg Loya MD Primary Care Provider [phone] Allergies Active Allergy Reactions Criticality Noted Date Comments Sulfa Antibiotics Hives,Rash Low 09/30/2017 Medications allopurinol (ZYLOPRIM) 100 MG tablet 1 tab/cap qday 01/01/2015 Active atorvastatin (LIPITOR) 40 MG tablet 1 tab/cap qday 05/21/2014 Active triamterene-hyd roCHLOROthiazid e (MAXZIDE) 75-50 MG per tablet 1 tab/cap qday 0 05/21/2014 Active [place]-3 Fatty Acids (FISH OIL CONCENTRATE) 1000 MG capsule 2 tabs/caps qday 05/22/2014 Active aspirin (ST STEFANY) 81 MG EC tablet 1 tab/cap qday 05/22/2014 Active verapamil SR (CALAN-SR) 180 MG CR tablet 1 tab/cap bid 05/21/2014 Ac tive clobetasol (TEMOVATE) 0.05 % ointment APPLY THIN LAYER WEEKLY TO VULVA IN AFFECTED AREA 04/10/2021 Active Active Problems Problem Noted Date Diagnosed Date Spinal stenosis of cervical region 10/29/2017 Hypercalcemia 01/01/2016 Hypertensive chronic kidney disease with stage 1 through stage 4 chronic kidney disease, or unspecified chronic kidney disease 09/11/2015 Gout 09/11/2014 Stage 3b chronic kidney disease 09/10/2014 Chronic kidney disease 06/21/2014 Acute kidney failure 05/22/2014 Essential (primary) hypertension 05/21/2014 Other and unspecified hyperlipidemia 05/21/2014 Overview (01/01/2019): Converted unresolved ICD9, potential mismatch. Polyosteoarthritis 05/21/2014 Diverticulosis of large inte tomy without perforation or abscess without bleeding 05/21/2014 Immunizations Immunization Administration Dates Next Due Influenza TIV (IM) 01/02/2016,09/12/2015, 014 Influenza, Injectable, Quadrivalent 07/19/2019 Pneumococcal Conjugate 13-Valent 01/02/2016 Sars-cov-2, Unspecified 12/25/2020 Family History Medical History Relation Comments Kidney disease Neg Hx Kidney stone Neg Hx Social History Tobacco Use Types Packs/Day Years Used Date Smoking Tobacco: Every Day Smokeless Tobacco: Never Tobacco Cessation:Ready to Q uit: No; Counseling Given: Yes Alcohol Use Standard Drinks/Week Comments Yes 0 (1 standard drink = 0.6 oz pure alcohol) Alcoholic Drinks/day: 3 glasses of wine a week Comments Unknown Sex and Gender Information Value Date Recorded Sex Assigned at Not on file Legal Sex Female 9:06 AM [facility] Gender Identity Not on file Sexual Orientation Not on file Last Filed Vital Signs Vital Sign Reading Time Taken Comments Blood Pressure 134/72 07/14/2022 2:07 PM CDT Pulse - - Temperature 36.2 C (97.1 F) 07/14/2022 2:07 PM CDT Respiratory Rate 18 07/14/2022 2:07 PM CDT Oxygen Saturation - - Inhaled Oxygen Concentration - - Weight 64 kg (141 lb) 07/14/2022 2:07 PM CDT Height 157.5 cm (5' 2) 07/14/2022 2:07 PM CDT Body Mass Index 25.79 07/14/2022 2:07 PM CDT Plan of Treatment Health Maintenance Due Date Last Done Comments Pneumococcal PPSV23/PCV13 65 + Years / Low and Medium Risk (2 of 3 - PPSV23) 01/01/2017 01/02/2016 Influenza Vaccine (Season Ended) 2025 01/02/2016, 09/12/2015, 09/11/2014 Insurance [employer] MEDICARE Care Teams Center Consultant Relationship Specialty Start Date End Date Kg Loya MD [address] [place] [phone] PCP - General Internal Medicine 12/12/19
--- OUTSIDE RECORDS SUMMARY | 2025-03-30 15:25 | XMS_ITS | Clinical Summary ---
Author Organization [facility] Address [address] [place] [address] Care Team Providers Care Raschel Knitting Machine Operator Name Role Phone Unavailable Primary Care Provider Unavailabl e Source Comments [facility] [employer],non-owned Affiliates and Associated Physician Practices is amultiple site organization consisting of ambulatory clinics and hospital sitesin [place], [place], [place] and [place]. This disclosure is being madepursuant to the Care Everywhere program and may not contain all information available regarding this patient. Last updated 18.[facility] [employer] Allergies Active Allergy Reactions Criticality Noted Date Comments Sulfa Drugs Urticaria Medium 01/14/2022 Medications * Be aware that medications may not be up to date on this document. Alwaysverify current medications with the patient. verapamil CR (ISOPTIN-SR) 180 MG tablet Take 180 mg by mouth daily with breakfast Active aspirin (ASPIRIN) 81 MG chew tablet Take 81 mg by mouth once daily Active atorvastatin (LIPITOR) 40 MG tablet Take 40 mg by mouth at bedtime Active allopurinol (ZYLOPRIM) 100 MG tablet Take 100 mg by mouth once daily Active vitamin D3 (CHOLECALCIFERO L) 10 MCG (400 UNIT) tablet Take 400 Units by mouth once daily Active triamterene-hyd roCHLOROthiazid e (DYAZIDE) 37.5-25 MG capsule Take 1 capsule by mouth once daily Active [place]-3 Fatty Acids (FISH OIL) 500 MG capsule Take by mouth 2 times daily Active prednisoLONE acetate (PRED FORTE) 1 % ophthalmic suspension Instill 1 (one) drop into left eye 4 times daily 2 Active nepafenac (NEVANAC) 0.1 % ophth suspension Instill 1 drop into left eye 4 times daily 2 Active moxifloxacin (VIGAMOX) 0.5 % ophthalmic solution Instill 1 (one) drop into left eye 4 times daily 2 Active Social History Tobacco Use Types Packs/Day Years Used Date Smoking Tobacco: Every Day Cigarettes 1 40 Smokeless Tobacco: Never Tobacco Cessation:Ready to Q uit: No; Counseling Given: No Comments:LAST CIGARETTE 01/13/22 Alcohol Use Standard Drinks/Week Comments Never 0 (1 standard drink = 0.6 oz pur e alcohol) AUDIT-C Answer Date Recorded Q1: How often do you have a drink containing alc ohol? Never 01/14/2022 Average Number of Drinks Not on file 022 Q3: How often do you have si x or more drinks on one occasion? Never 01/14/2022 Comments Unknown Sex and Gender Information Value Date Recorded Sex Assigned at Not on file Legal Sex Female 10:27 AM CRM CONSULTANT Gender Identity Not on file Sexual Orientation Not on file Last Filed Vital Signs Vital Sign Reading Time Taken Comments Blood Pressure 121/69 01/14/2022 10:41 AM CDT Pulse 79 01/14/2022 10:41 AM CDT Temperature 36.4 C (97.6 F) 01/14/2022 9:40 AM CDT Respiratory Rate 10 01/14/2022 10:41 AM CDT Oxygen Saturation 94% 01/14/2022 10:41 AM CDT Inhaled Oxygen Concentration - - Weight 62.6 kg (138 lb) 01/14/2022 7:49 AM CDT Height 160 cm (5' 3) 01/14/2022 7:49 AM CDT Body Mass Index 24.45 01/14/2022 7:49 AM CDT Plan of Treatment Health Maintenance Due Date Last Done Comments BONE DENSITY TESTING 1949 COLOGUARD (AGES 45-75) - COLON CA SCREENING 1949 COLON MONITORING 1949 COLONOSCOPY - COLON CA SCREENING 1949 CT COLONOGRAPHY - COLON CA SCREENING 1949 Colorectal Cancer Screening 1949 FIT - COLON CA SCREENING 1949 FLEX SIG - COLON CA SCREENING 1949 MAMMOGRAM 1949 HEPATITIS C SCREENING 06/08/1967 DTAP/TDAP/TD VACCINES (1 - Tdap) 1968 PNEUMOCOCCAL VACCINE 50+ (1 of 2 - PCV) 1968 ZOSTER VACCINE (1 of 2) 1999 Respiratory Syncytial Virus (RSV) Vaccine Pt: or over 60 yrs (1 - 1-dose 75+ series) 2024 COVID-19 VACCINE ( - season) 2024 DEPRESSION SCREENING 10/19/2024 MEDICARE AWV CALENDAR YEAR 2024 INFLUENZA VACCINE (Season Ended) 2025 07/19/2019, 01/02/2016, 09/12/2015, Additional history exists HEPATITIS B VACCINE Aged Out No longe r eligible based on patient's age to complete this topic HIB VACCINE Aged Out No longer eligi ble based on patient's age to complete this topic HPV VACCINE Aged Out No longer eligi ble based on patient's age to complete this topic MENINGOCOCCAL (Group B) VACCINE SHARED DECISION-MAKING Aged Out No longer eligible based on patient's age to complete this topic MENINGOCOCCAL GROUPS A/C/Y/W VACCINE Aged Out No longer eligible based on patient's age to complete this topic Medical Devices Implanted Type Area Small Machine Bindery Operator Device Identifier Shelf Expiration Date Model / Serial / Lot Lens Iol 0 D +23 Luz Maria Mod L Bcnvx Acrsf - [id number] Implanted:Qty: 1 on 01/14/2022 by Gurpreet Bautista MD at [facility] Left: Eye [employer] 07/04/2025 [id number] / [id number] / Jovanni Cornea - [id number] Implanted:Qty: 1 on 01/14/2022 by Gurpreet Bautista MD at [facility] Left: Eye [employer] 01/23/2022 BILL ONLY CORNEA / / Insurance [facility] MANAGED MEDICARE ADV SELF PAY NO INSURANCE Member Subscriber Plan / Payer (Ef fective for All Dates) Name:Akiko Spicer Member ID:Not on file Relation to Subscriber:Not on file Name:AKIKO SPICER Subscriber ID:Not on file (Home) Address: [address] [place], [place] [id number] Payer ID:Not on file Group ID:Not on file Type:Self Pay Address: [facility] MANAGED MEDICARE ADV SELF PAY NO INSURANCE Member Subscriber Plan / Payer (Ef fective for All Dates) Name:Akiko Spicer Member ID:Not on file Relation to Subscriber:Not on file Name:AKIKO SPICER Subscriber ID:Not on file (Home) Address: [address] [place], [place] [id number] Payer ID:Not on file Group ID:Not on file Type:Self Pay Address: [facility] MANAGED MEDICARE ADV SELF PAY NO INSURANCE Member Subscriber Plan / Payer (Ef fective for All Dates) Name:Akiko Spicer Member ID:Not on file Relation to Subscriber:Not on file Name:AKIKO SPICER Subscriber ID:Not on file (Home) Address: [address] [place], [place] [id number] Payer ID:Not on file Group ID:Not on file Type:Self Pay Address: [place] [place] [employer] MANAGED MEDICARE ADV
== END 2025-03-30 14:46 | disposition home or self-care (01) ==
PROVIDERS: Visit Provider Internal Medicine Endocrinology, Diabetes & Metabolism
DX: E04.2 Nontoxic multinodular goiter (principal)
CPT/HCPCS: 76536

== ENCOUNTER 2025-07-26 12:26 | Outpatient (CLI) | payer MEDICARE, SELFPAY ==
--- NOTE | ~2025-07-26 | XR_ITS ---
EXAMINATION: XR knee RT min 4V, 07/26/2025 12:43 CDT HISTORY: M25.569 - Pain in unspecified knee COMPARISON: No comparisons available. Findings: No acute fracture or malalignment. Moderate to severe tricompartmental degenerative changes, small effusion Soft tissues unremarkable. Impression: No acute fracture or malalignment. Reviewed, dictated and finalized at location P. Impression: No acute fracture or malalignment.
--- NOTE | ~2025-07-26 | XR_ITS ---
EXAMINATION: XR knee LT min 4V, 07/26/2025 12:43 CDT HISTORY: M17.12 - Unilateral primary osteoarthritis, left knee COMPARISON: No comparisons available. Findings: No acute fracture or malalignment. Moderate to severe tricompartmental degenerative changes Soft tissues unremarkable. Impression: No acute fracture or malalignment. Reviewed, dictated and finalized at location P. Impression: No acute fracture or malalignment.
== END 2025-07-26 12:27 | disposition home or self-care (01) ==
PROVIDERS: PCP Physician Assistant Medical; Visit Provider Orthopaedic Surgery
DX: M17.12 Unilateral primary osteoarthritis, left knee (principal); M25.561 Pain in right knee
CPT/HCPCS: 73564